=== PATIENT | female | born 1970 | race Asian ===

== ENCOUNTER 2018-02-14 10:43 | Inpatient (IN) | payer OTHER ==
[~2018-02-14] VITALS: Ht 152.4 cm; Wt 39.0 kg
[2018-02-14 10:43] VITALS: BP_SYST 157
[2018-02-14 11:28] LABS: BASOPHILS # (AUTO) 0.1 K/uL (0.0-0.2); BASOPHILS % (AUTO) 1.3 % (0.0-2.0); EOSINOPHILS # (AUTO) 0.1 K/uL (0.0-0.4); EOSINOPHILS % (AUTO) 2.5 % (0.0-4.0); HEMATOCRIT 43.3 % (36-48); HEMOGLOBIN 14.3 g/dL (12.0-16.0); LYMPHOCYTES # (AUTO) 1.3 K/uL (1.0-5.5); MEAN CORPUSCULAR HEMOGLOBIN 30 pg (27-31); MEAN CORPUSCULAR HGB CONC 33 % (32-36); MEAN CORPUSCULAR VOLUME 90 fL (79.0-98.0); MONOCYTES # (AUTO) 0.3 K/uL (0.0-1.0); NEUTROPHILS # (AUTO) 3.5 K/uL (1.8-7.7); NEUTROPHILS % (AUTO) 66.2 % (40.0-70.0); PLATELET COUNT (AUTO) 232 K/uL (130-430); RED BLOOD CELL COUNT(AUTO) 4.83 MIL/uL (4.2-6.2); RED CELL DISTRIBUTION WIDTH 12.5 % (9.0-15.0); WHITE BLOOD COUNT (AUTO) 5.4 K/uL (4.8-10.8)
[2018-02-14 11:31] LABS: BILIRUBIN,URINE NEGATIVE (NEGATIVE); BLOOD, URINE NEGATIVE (NEGATIVE); CLARITY/URINE CLEAR (CLEAR); COLOR,URINE YELLOW (YELLOW); GLUCOSE,URINE NEGATIVE (NEGATIVE); KETONES,URINE NEGATIVE (NEGATIVE); LEUKOCYTE ESTERASE ,URINE TRACE (NEGATIVE); NITRITE, URINE NEGATIVE (NEGATIVE); PROTEIN URINE NEGATIVE (NEGATIVE); UROBILINOGEN,URINE 0.2 (0.2-1.0)
[2018-02-14 11:45] LABS: CALCIUM 8.7 mg/dL (8.4-11.0); CREATININE 0.55 mg/dL (0.55-1.30); POTASSIUM 4.1 mmol/L (3.5-5.1)
[2018-02-14 11:45] LABS: BACTERIA,URINE FEW /HPF (None Seen); MUCUS,URINE None Seen /LPF (None Seen); RBC,URINE 0-3 /HPF (0-3); WBC,URINE 0-3 /HPF (0-3)
[2018-02-14 11:46] LABS: PROTHROMBIN TIME 9.8 SECS (9.5-12.5)
[2018-02-14 11:49] LABS: ALBUMIN 4.1 g/dL (3.4-4.8); TOTAL BILIRUBIN 0.7 mg/dL (0.0-1.0)
[2018-02-14] MEDS ORDERED: ENALAPRILAT DIHYDRATE 1.25 MG/ML VIAL IVP ONE ×2 (12:45→13:30)
[2018-02-14] MEDS ORDERED: NITROFURANTOIN MONOHYD/M-CRYST 100 MG CAPSULE PO ONE (14:30)
[2018-02-14 14:52] VITALS: BP_SYST 136
[2018-02-14] MEDS ORDERED: ACETAMINOPHEN 325 MG TABLET PO PRN (16:45)
[2018-02-14] MEDS ORDERED: cloNIDine HCL 0.1 MG TABLET PO PRN (16:45)
[2018-02-14] MEDS ORDERED: TEMAZEPAM 15 MG CAPSULE PO PRN (16:45)
[2018-02-14 16:54] VITALS: BP_SYST 120
[2018-02-14 20:18] VITALS: BP_SYST 127
[2018-02-14 23:33] VITALS: BP_SYST 136
[2018-02-15 07:40] VITALS: BP_SYST 134
[2018-02-15 07:46] LABS: BASOPHILS % (AUTO) 0.9 % (0.0-2.0); EOSINOPHILS # (AUTO) 0.2 K/uL (0.0-0.4); EOSINOPHILS % (AUTO) 4.3 % (0.0-4.0); HEMOGLOBIN 13.9 g/dL (12.0-16.0); LYMPHOCYTES # (AUTO) 1.2 K/uL (1.0-5.5); LYMPHOCYTES % (AUTO) 24.1 % (20.5-51.5); MEAN CORPUSCULAR HEMOGLOBIN 30 pg (27-31); MEAN CORPUSCULAR HGB CONC 34 % (32-36); MEAN CORPUSCULAR VOLUME 90 fL (79.0-98.0); MONOCYTES # (AUTO) 0.4 K/uL (0.0-1.0); MONOCYTES % (AUTO) 7.9 % (1.7-9.3); NEUTROPHILS # (AUTO) 3.1 K/uL (1.8-7.7); NEUTROPHILS % (AUTO) 62.8 % (40.0-70.0); PLATELET COUNT (AUTO) 221 K/uL (130-430); RED BLOOD CELL COUNT(AUTO) 4.56 MIL/uL (4.2-6.2); RED CELL DISTRIBUTION WIDTH 12.6 % (9.0-15.0); WHITE BLOOD COUNT (AUTO) 4.9 K/uL (4.8-10.8)
[2018-02-15 07:56] LABS: POTASSIUM 3.4 mmol/L (3.5-5.1)
[2018-02-15 07:57] LABS: ALBUMIN 3.8 g/dL (3.4-4.8); CALCIUM 8.7 mg/dL (8.4-11.0); CREATININE 0.65 mg/dL (0.55-1.30); TOTAL BILIRUBIN 1.2 mg/dL (0.0-1.0)
[2018-02-15 07:58] LABS: FREE T4 (FREE THYROXINE) 0.9 ng/dL (0.6-1.6); THYROID STIMULATING HORMONE 2.05 uIu/mL (0.34-4.82)
[2018-02-15 13:06] VITALS: BP_SYST 134
[2018-02-15] MEDS ORDERED: POTASSIUM CHLORIDE 20 MEQ TAB.PRT.SR PO ONE (15:15)
[2018-02-15 15:28] VITALS: BP_SYST 134
[2018-02-15] MEDS ORDERED: LOSA25TA3 PO (15:40)
[2018-02-15] MEDS ORDERED: CAT.1 PO (15:41)
== END 2018-02-15 16:40 | disposition home or self-care (01) | DRG 305 ==
LOC: SED 10:43 → EDBD 10:43 → STU 10:47
PROVIDERS: ADMIT Internal Medicine; ATTEND Internal Medicine
DX: I10 Essential (primary) hypertension (principal); E80.4 Gilbert syndrome; Z88.2 Allergy status to sulfonamides; Z88.8 Allergy status to other drugs, medicaments and biological substances; Z84.89 Family history of other specified conditions
CPT/HCPCS: 36415; 70450-TC; 80053; 80061; 81000-TC; 81025; 82306; 82607; 83735-TC; 84439; 84443-TC; 84484; 85025; 85379; 85610-TC; 85730-TC; 93005; 93306; 93880; 96374; 99285

== ENCOUNTER 2018-03-06 08:34 | Outpatient (CLI) | payer OTHER ==
[~2018-03-06 08:34] MED LIST: CAT.1 PO; LOSA25TA3 PO
== END 2018-03-06 21:49 | disposition home or self-care (01) ==
LOC: SUS 08:34
PROVIDERS: ATTEND Internal Medicine
DX: R94.5 Abnormal results of liver function studies (principal); R51 Headache; I10 Essential (primary) hypertension
CPT/HCPCS: 70551; 76700-TC

== ENCOUNTER 2019-06-25 14:32 | Emergency (ER) | payer OTHER ==
[~2019-06-25] VITALS: Ht 152.4 cm; Wt 38.6 kg
[2019-06-25 14:32] VITALS: BP_SYST 157
--- NOTE | 2019-06-25 14:34 | NUR ---
PT BROUGHT IN TO ER AND TRIAGED. REPORT GIVEN TO JOHN
--- NOTE | 2019-06-25 14:35 | NUR ---
Pt brought by self, A&Ox4, pt present to ER with anxiety and tingling of upper extremities, skin pink and warm, cap refill <3, VSS, respirations even and unlabored.
--- NOTE | 2019-06-25 14:47 | NUR ---
DR KING AT BEDSIDE FOR EVALUATION
[2019-06-25] MEDS ORDERED: LORazepam 2 MG/ML VIAL IVP ONE (15:00)
[2019-06-25] MEDS ORDERED: LORazepam 2 MG/ML VIAL ONE (15:06)
--- NOTE | 2019-06-25 16:42 | NUR ---
PT WITH MANY QUESTIONS, DR KING TO BEDSIDE SPEAKING WITH PT. AWAITING ORDERS
--- NOTE | 2019-06-25 16:57 | NUR ---
Pt states he is feeling better at this time, pt requesting blood work to be done, Dr Hanna notified.
[2019-06-25 17:31] LABS: CALCIUM 9.1 mg/dL (8.4-11.0); CREATININE 0.66 mg/dL (0.55-1.30)
--- NOTE | 2019-06-25 17:36 | NUR ---
DR KING AT BEDSIDE SPEAKING WITH PT IN DEPTH ABOUT LABS
[2019-06-25 17:43] VITALS: BP_SYST 131
--- NOTE | 2019-06-25 17:43 | NUR ---
Patient given written and verbal discharge instructions and verbalizes understanding. ER MD discussed with patient the results and treatment provided. Patient in stable condition. ID arm band removed. IV catheter removed intact and dressing applied, no active bleeding. Rx of XANAX given. Patient educated on pain management and to follow up with PMD. Pain Scale 0/10. Opportunity for questions provided and answered. Medication side effect fact sheet provided.
== END 2019-06-25 17:43 | disposition home or self-care (01) ==
LOC: SED 14:32
DX: F41.9 Anxiety disorder, unspecified (principal); Z88.1 Allergy status to other antibiotic agents; Z88.2 Allergy status to sulfonamides; Z88.8 Allergy status to other drugs, medicaments and biological substances
CPT/HCPCS: 36415; 80048; 96374; 99284; J2060; 99283